=== PATIENT | male | born 1970 ===

== ENCOUNTER 2023-07-31 08:11 | Day surgery (SDC) | payer OTHER ==
[~2023-07-31 08:11] MED LIST: CARVEDILOL ER40 MG PO; ZESTRIL40 M1 PO
== END 2023-07-31 16:35 | disposition home or self-care (01) ==
LOC: CIR.AMB 08:11
PROVIDERS: ATTEND Orthopaedic Surgery Hand Surgery
DX: M66.821 Spontaneous rupture of other tendons, right upper arm (principal); M62.421 Contracture of muscle, right upper arm; Z20.822 Contact with and (suspected) exposure to COVID-19